=== PATIENT | male | born 2000 | race Caucasian/White ===

== ENCOUNTER 2024-11-28 17:08 | Emergency (ER) | payer OTHER, MEDICAID ==
[~2024-11-28] VITALS: Ht 167.6 cm; Wt 74.5 kg
[2024-11-28] MEDS ORDERED: LACTATED RINGER'S 1,000 ML IV ONE (17:15)
[2024-11-28 17:25] LABS: BASOPHILS 1.1 % (0.2-1.2); EOSINOPHILS 0.2 % (0.8-7.0); LYMPHOCYTES 21.2 % (21.8-53.1); MCH 32.8 PG (25.7-32.2); MCHC 34.4 g/dL (32.3-36.5); MCV 95.6 fL (79.0-92.2); MONOCYTES 6.2 % (5.3-12.2); NEUTROPHILS 71.1 % (34.0-67.9); RBC 4.05 M/uL (4.63-6.08)
[2024-11-28 17:43] LABS: ALCOHOL, MEDICAL <3 ng/dL (<3); ALT (SGPT) 24 U/L (14-59); AST (SGOT) 21 U/L (15-37); GLOMERULAR FILTRATION RATE,EST 97 mL/min (>60); PROTEIN, TOTAL 7.8 g/dL (6.4-8.2); UREA NITROGEN 14 mg/dL (7-18)
[2024-11-28 18:02] LABS: ABO O; RH NEGATIVE
[2024-11-28 18:03] LABS: ANTIBODY SCREEN NEGATIVE
[2024-11-28 18:57] LABS: BLOOD/HGB, URINE NEGATIVE (Negative); KETONE, URINE NEGATIVE (Negative); LEUK ESTERASE, URINE NEGATIVE (negative); NITRITE, URINE NEGATIVE (negative)
[2024-11-28 19:18] LABS: AMPHETAMINES, URINE NEGATIVE (NEGATIVE); BARBITURATES, URINE NEGATIVE (NEGATIVE); BENZODIAZEPINE, URINE NEGATIVE (NEGATIVE); CANNABINOID, URINE NEGATIVE (NEGATIVE); COCAINE, URINE NEGATIVE (NEGATIVE); ECSTASY, URINE NEGATIVE (NEGATIVE); FENTANYL, URINE NEGATIVE (NEGATIVE); METHADONE, URINE NEGATIVE (NEGATIVE); OPIATES, URINE NEGATIVE (NEGATIVE); OXYCODONE, URINE NEGATIVE (NEGATIVE); PHENCYCLIDINE, URINE NEGATIVE (NEGATIVE)
[2024-11-28 19:52] VITALS: BP 129/84
== END 2024-11-28 19:52 | disposition home or self-care (01) ==
LOC: ED 17:08
PROVIDERS: Emergency Medicine
DX: S22.41XA Multiple fractures of ribs, right side, initial encounter for closed fracture (principal); M25.511 Pain in right shoulder; V80.918A Animal-rider injured in other transport accident, initial encounter
CPT/HCPCS: 36415; 70450; 71260; 72125; 73000; 73610; 74177; 80053; 80307; 81003; 85025; 86850; 86900; 86901; 96360; 99284-25; G0480; J7121; Q9967

== ENCOUNTER 2024-11-30 02:41 | Emergency (ER) | payer OTHER, MEDICAID ==
[~2024-11-30] VITALS: Ht 167.6 cm; Wt 82.2 kg
--- OUTSIDE RECORDS SUMMARY | 2024-11-30 02:48 | XMS ---
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 Brayan VISIT COUNT (12 MO.) 2 [facility] ([place] ) TOTAL 3 NOTE: Visits indicate total known visits. ED/UCC VISIT TRACKING (12 MO.) 11/30/2024 02:41 [facility] TYPE: Emergency COMPLAINT: - ALTERED LOC 11/28/2024 17:09 [facility] TYPE: Emergency COMPLAINT: - TRAUMA 07/20/2024 17:23 Shiv RANGEL ([facility]) TYPE: Emergency DIAGNOSES: - fall - Trauma INPATIENT VISIT TRACKING (12 MO.) No inpatient visits to display in this time frame [email or web address]
[2024-11-30 03:20] LABS: BASOPHILS 0.7 % (0.2-1.2); EOSINOPHILS 1.6 % (0.8-7.0); LYMPHOCYTES 38.4 % (21.8-53.1); MCH 32.9 PG (25.7-32.2); MCHC 34.2 g/dL (32.3-36.5); MCV 96.0 fL (79.0-92.2); MONOCYTES 5.8 % (5.3-12.2); NEUTROPHILS 53.3 % (34.0-67.9); RBC 3.50 M/uL (4.63-6.08)
[2024-11-30 03:30] LABS: ALCOHOL, MEDICAL 237.0 ng/dL (<3); ALT (SGPT) 20.0 U/L (14-59); AST (SGOT) 27.0 U/L (15-37); GLOMERULAR FILTRATION RATE,EST 130.0 mL/min (>60); PROTEIN, TOTAL 6.8 g/dL (6.4-8.2); UREA NITROGEN 9.0 mg/dL (7-18)
[2024-11-30] MEDS ORDERED: LACTATED RINGER'S 1,000 ML IV ONE (03:30)
[2024-11-30] MEDS ORDERED: ACETAMINOPHEN 500 MG TAB PO ONE (07:45)
[2024-11-30 07:51] VITALS: BP 111/68
== END 2024-11-30 07:51 | disposition home or self-care (01) ==
LOC: ED 02:41
PROVIDERS: Internal Medicine
DX: F10.929 Alcohol use, unspecified with intoxication, unspecified (principal); Y90.7 Blood alcohol level of 200-239 mg/100 ml
CPT/HCPCS: 36415; 80053; 85025; 99284; A9270; G0480; J7121